=== PATIENT | female | born 1980 | race Caucasian/White ===

== ENCOUNTER 2016-07-30 14:17 | Emergency (ER) | payer SELFPAY ==
[~2016-07-30] VITALS: Ht 175.3 cm; Wt 56.0 kg
[2016-07-30 14:18] VITALS: BP 104/57; PULSE 70; RESP 16; TEMP 98.6; O2SAT 100
[2016-07-30] MEDS ORDERED: BACT800T5 PO (15:31)
--- NOTE | 2016-07-30 15:31 | PD ---
HPI Chief Complaint: Skin Problem Time Seen by Provider: 15:10 Travel History International Travel<30 days: No Contact w/Intl Traveler<30days: No Traveled to known affect area: No History of Present Illness HPI 36-year-old female presents emergency department for evaluation of possible abscess on her right side of her neck 2 days. Patient reports she developed a painful lump on the right side of her neck 2 days ago the area has become increasingly more painful and red. She reports pain only at the site of the abscess, nonradiating, no alleviating factors, 3/10 severity. She reports small amount of drainage from the site. Patient reports frequent history of abscesses. She denies fever, chills, nausea or vomiting. PFSH Past Medical History Medical History: Denies Significant Hx Respiratory: Yes (SPONTANEOUS PNEUMO) Influenza Vaccination: No ?: Not LMP: 07/29/16 Past Surgical History Oral Surgery: Yes (8 TEETH PULLED) Social History Alcohol Use: Yes Tobacco Use: Yes (02/21 PPD) Substance Use: No Allergies-Medications (Allergen,Severity, Reaction): Coded Allergies: No Known Allergies (Unverified , 07/30/16) Reported Meds & Prescriptions Reported Meds & Active Scripts Active No Active Prescriptions or Reported Medications Review of Systems Except as stated in HPI: all other systems reviewed are Neg Physical Exam Narrative GENERAL: Alert, well-appearing female SKIN: Focused skin assessment warm/dry. 1 cm circular erythematous nodule right side of the neck. The area is indurated without fluctuation. No surrounding lymphangitis or cellulitis. HEAD: Atraumatic. Normocephalic. EYES: Pupils equal and round. No scleral icterus. No injection or drainage. ENT: No nasal bleeding or discharge. Mucous membranes pink and moist. NECK: Trachea midline. No JVD. No lymphadenopathy CARDIOVASCULAR: Regular rate and rhythm. No murmur appreciated. RESPIRATORY: No accessory muscle use. Clear to auscultation. Breath sounds equal bilaterally. GASTROINTESTINAL: Abdomen soft, non-tender, nondistended. Hepatic and splenic margins not palpable. MUSCULOSKELETAL: No obvious deformities. No clubbing. No cyanosis. No edema. NEUROLOGICAL: Awake and alert. No obvious cranial nerve deficits. Motor grossly within normal limits. Normal speech. PSYCHIATRIC: Appropriate mood and affect; insight and judgment normal. Data Data Last Documented VS Vital Signs Date Time Temp Pulse Resp B/P Pulse Ox O2 Delivery O2 Flow Rate FiO2 07/30/16 14:18 98.6 70 16 104/57 100 MDM Medical Decision Making Medical Screen Exam Complete: Yes Emergency Medical Condition: Yes Differential Diagnosis Early abscess, inflamed sebaceous cyst Narrative Course 36-year-old female presents emergency department for evaluation of possible abscess right anterior aspect of her neck for 2 days. Patient denies fever, chills, nausea or vomiting. She reports history of frequent abscesses in the past. On exam she has a 1 cm circular erythematous nodule consistent with early abscess. The area is not fluctuant and not ready for incision and drainage. Patient will be placed on anabiotic's instructed to apply warm compresses and follow-up. Diagnosis Primary Impression: Abscess Referrals: [facility] Patient Instructions: Abscess (ED), General Instructions Scripts Sulfamethoxazole-Trimethoprim (Bactrim DS)800-160 Mg Tab1 Tab PO BID #20 TAB Prov:Sonya To 07/30/16 Disposition: 01 DISCHARGE HOME Condition: Stable Sonya To Jul 30, 2016 15:31
== END 2016-07-30 15:38 | disposition home or self-care (01) ==
LOC: PHED 14:17 → PHEFT 15:38
DX: L02.11 Cutaneous abscess of neck (principal); F17.210 Nicotine dependence, cigarettes, uncomplicated
CPT/HCPCS: 99283

== ENCOUNTER 2016-10-01 17:04 | Emergency (ER) | payer SELFPAY ==
[~2016-10-01] VITALS: Ht 175.3 cm; Wt 62.9 kg
[~2016-10-01 17:04] MED LIST: BACT800T5 PO
[2016-10-01 17:16] VITALS: BP 114/58; PULSE 71; RESP 14; TEMP 98.8; O2SAT 99
[2016-10-01 19:42] VITALS: BP 105/74; PULSE 60; RESP 18; TEMP 98.8; O2SAT 99
--- NOTE | 2016-10-01 19:55 | PD ---
HPI Chief Complaint: Head Injury Time Seen by Provider: 19:43 Travel History International Travel<30 days: No Contact w/Intl Traveler<30days: No Traveled to known affect area: No History of Present Illness HPI C/O WHILE WALKING IN HER CONDO, APPARENTLY [employer] HAD A PIECE OF EQUIPMENT STICKING OUT AND SHE WALKED, SHE HIT THE RIGHT SIDE OF HER DRUZE INTO IT, NO LOC, BUT HAS HAD [place], DIZZY SPELLS AND NAUSEA SINCE, IT HAS NOW BEEN A TOTAL OF 6HRS NOT IMPROVING, RATES IT 6/10 PFSH Past Medical History Diminished Hearing: No Respiratory: Yes (SPONTANEOUS PNEUMO) Tetanus Vaccination: Unknown Influenza Vaccination: No ?: Not LMP: 09/07/16 Past Surgical History Oral Surgery: Yes (8 TEETH PULLED) Social History Alcohol Use: Yes Tobacco Use: Yes (02/21 PPD) Substance Use: No Allergies-Medications (Allergen,Severity, Reaction): Coded Allergies: No Known Allergies (Unverified , 10/01/16) Reported Meds & Prescriptions Reported Meds & Active Scripts Active No Active Prescriptions or Reported Medications Review of Systems Except as stated in HPI: all other systems reviewed are Neg HENT: Positive: Headaches Physical Exam Narrative GENERAL: SKIN: Warm and dry. HEAD: SMALL MILD CONTUSION NOTED ON RIGHT DRUZE REGION. Normocephalic. EYES: Pupils equal and round. No scleral icterus. No injection or drainage. EOMI, MILD PHOTOPHOBIA ENT: No nasal bleeding or discharge. Mucous membranes pink and moist. NO HEMOTYMPANUM NECK: Trachea midline. No JVD. CARDIOVASCULAR: Regular rate and rhythm. RESPIRATORY: No accessory muscle use. Clear to auscultation. Breath sounds equal bilaterally. GASTROINTESTINAL: Abdomen soft, non-tender, nondistended. MUSCULOSKELETAL: Extremities without clubbing, cyanosis, or edema. No obvious deformities. NEUROLOGICAL: Awake and alert. No obvious cranial nerve deficits. Motor grossly within normal limits. Five out of 5 muscle strength in the arms and legs. Normal speech. PSYCHIATRIC: Appropriate mood and affect; insight and judgment normal. Data Data Last Documented VS Vital Signs Date Time Temp Pulse Resp B/P Pulse Ox O2 Delivery O2 Flow Rate FiO2 10/01/16 19:46 60 18 99 Room Air 10/01/16 19:42 98.8 105/[address] Brain W/O Iv Contrast(Rout) (10/01/16 ) Ondansetron Odt (Zofran Odt) (10/01/16 20:00) Acetamin-Hydrocod 325-5 Mg ([place] 5-325 (10/01/16 20:00) MDM Medical Decision Making Medical Screen Exam Complete: Yes Emergency Medical Condition: Yes Medical Record Reviewed: Yes Differential Diagnosis ICH V CONTUSION V CONCUSSION V SKULL FX Narrative Course CT HEAD DID NOT SHOW ANY E/O ICH, SKULL FX NOR ANY COUP OR COUNTERCOUP BRAIN INJURY. Diagnosis Primary Impression: Concussion Qualified Code: S06.0X0A - Concussion without loss of consciousness, initial encounter Patient Instructions: Concussion (ED), Post Concussion Syndrome (ED) Scripts Codeine-Acetaminophen 30-300 mg Tab1 Tab PO Q4H PRN (PAIN) #20 TAB Prov:Jarocho May MD 10/01/16 Ondansetron Odt (Zofran Odt)4 Mg Tab4 Mg SL Q6HR PRN (Nausea/Vomiting) #20 TAB Prov:Jarocho May MD 10/01/16 Disposition: 01 DISCHARGE HOME Condition: Stable Jarocho May MD Oct 01, 2016 19:55
[2016-10-01] MEDS ORDERED: ACETAMINOPHEN/HYDROcodone 325 MG/5 MG TAB PO ONE (20:00)
[2016-10-01] MEDS ORDERED: ONDANSETRON ODT 4 MG TAB PO/SL ONE (20:00)
--- NOTE | 2016-10-01 20:25 | RADRPT ---
EXAM DATE/TIME: 10/01/2016 20:10 [facility] COMPARISON: No previous studies available for comparison. INDICATIONS : Cephalgia. RADIATION DOSE: 56.99 CTDIvol (mGy) MEDICAL HISTORY : None SURGICAL HISTORY : None. ENCOUNTER: Initial ACUITY: 1 day PAIN SCALE: 7/10 LOCATION: Bilateral frontal TECHNIQUE: Multiple contiguous axial images were obtained of the head. Using automated exposure control and adj ustment of the mA and/or kV according to patient size, radiation dose was kept as low as reasonably a chievable to obtain optimal diagnostic quality images. DICOM format image data is available electro nically for review and comparison. FINDINGS: CEREBRUM: The ventricles are normal for age. No evidence of midline shift, mass lesion, hemorrhage or acute in farction. No extra-axial fluid collections are seen. POSTERIOR FOSSA: The cerebellum and brainstem are intact. The 4th ventricle is midline. The cerebellopontine angle i s unremarkable. EXTRACRANIAL: The visualized portion of the orbits is intact. SKULL: The calvaria is intact. No evidence of skull fracture. CONCLUSION: Negative noncontrast head CT. Santiago Reyes MD on October 01, 2016 at 20:23 Board Certified Radiologist. This report was verified electronically.
[2016-10-01] MEDS ORDERED: ZOFR4TAB3 SL (20:29)
[2016-10-01] MEDS ORDERED: CODE30TA2 PO (20:29)
[2016-10-01 20:55] VITALS: BP 108/60; PULSE 70; RESP 18; O2SAT 99
== END 2016-10-01 21:03 | disposition home or self-care (01) ==
LOC: PHED 17:04
DX: S06.0X0A Concussion without loss of consciousness, initial encounter (principal); W22.8XXA Striking against or struck by other objects, initial encounter; Y93.01 Activity, walking, marching and hiking
CPT/HCPCS: 70450; 99284

== ENCOUNTER 2016-11-13 05:36 | Emergency (ER) | payer SELFPAY ==
[~2016-11-13] VITALS: Ht 172.7 cm; Wt 62.2 kg
[~2016-11-13 05:36] MED LIST changes: -BACT800T5 PO; +CODE30TA2 PO; +ZOFR4TAB3 SL
[2016-11-13 05:43] VITALS: BP 104/74; PULSE 74; RESP 16; TEMP 98.2; O2SAT 95
--- NOTE | 2016-11-13 06:07 | PD ---
HPI Chief Complaint: ENT Complaint Time Seen by Provider: 05:49 Travel History International Travel<30 days: No Contact w/Intl Traveler<30days: No Traveled to known affect area: No History of Present Illness HPI The patient is a 36-year-old female that complains of a sore throat for 2 days. She also has a cough productive yellow sputum. She smokes a pack a day. She also drinks about 26 packs a day of beer. She states she cannot be , she has had a tubal ligation. She denies any ear pain. She denies any fever or chest pain. [facility] Past Medical History Diminished Hearing: No Respiratory: Yes (SPONTANEOUS PNEUMO) Tetanus Vaccination: Unknown ?: Not LMP: 11-13-16 Past Surgical History Oral Surgery: Yes (8 TEETH PULLED) Social History Alcohol Use: Yes Tobacco Use: Yes (02/21 PPD) Substance Use: No Allergies-Medications (Allergen,Severity, Reaction): Coded Allergies: No Known Allergies (Unverified , 11/13/16) Reported Meds & Prescriptions Reported Meds & Active Scripts Active No Active Prescriptions or Reported Medications Review of Systems Except as stated in HPI: all other systems reviewed are Neg Physical Exam Narrative GENERAL: The patient is alert, oriented 3 in no respiratory distress. Her vital signs are normal. She smells slightly of beer but does not appear clinically intoxicated. SKIN: Focused skin assessment warm/dry. No skin rash is present. HEAD: Atraumatic. Normocephalic. EYES: Pupils equal and round. No scleral icterus. No injection or drainage. ENT: No nasal bleeding or discharge. Mucous membranes pink and moist. The tympanic membranes are poorly seen due to wax in the ear canals but the right tympanic membrane appears normal. NECK: Trachea midline. No JVD. There is no meningismus present. CARDIOVASCULAR: Regular rate and rhythm. No murmur appreciated. RESPIRATORY: No accessory muscle use. Widely scattered rhonchi and a few wheezes are heard in all lung pizarro. Breath sounds equal bilaterally. GASTROINTESTINAL: Abdomen soft, non-tender, nondistended. Hepatic and splenic margins not palpable. No guarding or rebound is present. MUSCULOSKELETAL: No obvious deformities. No clubbing. No cyanosis. No edema. NEUROLOGICAL: Awake and alert. No obvious cranial nerve deficits. Motor grossly within normal limits. Normal speech. PSYCHIATRIC: Appropriate mood and affect; insight and judgment normal. Data Data Last Documented VS Vital Signs Date Time Temp Pulse Resp B/P (MAP) Pulse Ox O2 Delivery O2 Flow Rate FiO2 11/13/16 05:43 98.2 74 16 104/74 (84) 95 Orders Orders Group A Rapid Strep Screen (11/13/16 06:03) Chest, Pa & Lat (11/13/16 06:03) Strep Culture (Group A) (11/13/16 06:05) MDM Medical Decision Making Medical Screen Exam Complete: Yes Emergency Medical Condition: Yes Medical Record Reviewed: Yes Interpretation(s) The group A strep antigen is negative for group A strep antigen. The PA lateral chest x-ray shows no acute findings, only mild hyperinflation. Differential Diagnosis Pneumonia, bronchitis, strep pharyngitis, viral pharyngitis, viral upper respiratory infection Narrative Course The patient has bronchitis. She needs to discontinue smoking, discontinue alcohol if possible and is given Zithromax. Diagnosis Primary Impression: Bronchitis Additional Instructions: As we discussed, discontinue smoking and discontinue the beer. Get plenty of rest and drink plenty of liquids, other than alcohol. The Zithromax is one tablet daily for 5 days. Follow-up with a primary care physician this week or early next week. Med/Other Pt SpecificInfo: Prescription(s) given Scripts Azithromycin (Zithromax) 500 Mg Tab 500 MG PO DAILY for Infection for 5 Days, #5 TAB 0 Refills Prov: Grant Aden MD 11/13/16 Disposition: 01 DISCHARGE HOME Condition: Stable Grant Aden MD Nov 13, 2016 06:07
--- NOTE | 2016-11-13 06:28 | RADRPT ---
EXAM DATE/TIME: 11/13/2016 06:07 [facility] COMPARISON: No previous studies available for comparison. INDICATIONS : Cough. MEDICAL HISTORY : None. SURGICAL HISTORY : None. ENCOUNTER: Initial ACUITY: 4 - 6 days PAIN SCORE: 0/10 LOCATION: Bilateral chest FINDINGS: PA and lateral views of the chest demonstrate the lungs to be symmetrically aerated without evidence of mass, infiltrate or effusion. Lungs hyperinflated. The cardiomediastinal contours are unremarkable . Osseous structures are intact. CONCLUSION: 1. No acute findings. Mild hyperinflation. Anselmo Bhat MD on November 13, 2016 at 6:25 Board Certified Radiologist. This report was verified electronically.
[2016-11-13] MEDS ORDERED: ZITH500T PO (06:53)
[2016-11-13] MEDS ORDERED: AZITHROMYCIN 250 MG TAB PO ONE (07:00)
== END 2016-11-13 07:05 | disposition home or self-care (01) ==
LOC: PHED 05:36
DX: J40 Bronchitis, not specified as acute or chronic (principal); F17.200 Nicotine dependence, unspecified, uncomplicated; Z87.09 Personal history of other diseases of the respiratory system
CPT/HCPCS: 71020; 87081; 87880; 99284